=== PATIENT | male | born 1980 | race Caucasian/White ===

== ENCOUNTER → 2017-04-08 | Outpatient (CLI) | payer MEDICAID ==
[~2017-04-08] MED LIST: ALBUTEROL0.09 MG/A1 IH; ALBUTEROL2 PUFFS/17 IN; CARAFATE1 GM PO; CEPHALEXIN500 MG PO; CIPRO 500MG TA500 MG PO; FLEXERIL10 MG PO; IBU800 MG PO; MEDROL 4MG. DOSE4 MG PO; MOTRIN600 M1 PO; MOTRIN800 MG PO; NAPROSYN 500MG500 MG PO; NAPROXEN SODIU500 MG PO; NOMEDS; RANITIDINE HCL150 MG PO; SUDAFED 24 HOU240 MG PO; TESSALON PERLE100 MG PO; TRAMADOL 50MG T50 MG PO; VOLTAREN75 MG PO; ZITHROMAX Z-PA250 M1 PO
--- NOTE | 2017-04-08 11:15 | RADIOLOGY REPORT PS360 ---
EXAM: CERVICAL SPINE 4 OR 5 VIEWS HISTORY: DECREASED SENSATION IN UPPER EXTREMETY ORDERING PHYSICIAN: Lety Saldana APRN PATIENT AGE: 36 years COMPARISON: None FINDINGS: Normal alignment. No fracture or dislocation. No lytic or blastic change. There is straightening of the cervical lordosis. Moderate degenerative disc disease is present at C5-C6 and C6-C7 with endplate hypertrophic changes and decrease in the disc space. No obvious foraminal narrowing on the right. There is mild left foraminal narrowing at C5-C6. IMPRESSION: Cervical spondylosis with straightening of the cervical lordosis and degenerative disc disease at C5-C6 and C6-C7 along with mild left foraminal narrowing at C5-C6
--- NOTE | 2017-04-08 11:15 | RADIOLOGY REPORT PS360 ---
EXAM: THORACIC SPINE-3V SWIMMERS HISTORY: DECREASED SENSATION IN UPPER EXTREMETY COMPARISON: None FINDINGS: Normal alignment. No fracture or dislocation. No lytic or blastic change. There is minimal upper thoracic curvature convex right with minimal endplate hypertrophic change in the upper thoracic spine. IMPRESSION: Mild degenerative change thoracic spine with minimal upper thoracic curvature convex right
== END ==
LOC: RAD 09:44
DX: R20.8 Other disturbances of skin sensation (principal)

== ENCOUNTER → 2017-10-16 | Outpatient (CLI) | payer MEDICAID | LOC: RT 10-12 14:00 | DX: R05 Cough (principal); Z72.0 Tobacco use ==